=== PATIENT | male | born 1955 | race Caucasian/White ===

== ENCOUNTER 2020-03-25 07:35 | Emergency (ER) | payer OTHER, SELFPAY ==
[2020-03-25 07:55] VITALS: BP 136/85; PULSE 72; RESP 16; TEMP 37.3; O2SAT 98; BMI 29.3
--- NOTE | 2020-03-25 08:22 | XR_ITS ---
EXAMINATION: XR HAND, RIGHT CLINICAL INFORMATION: Second finger laceration. Evaluate for fracture. COMPARISON: None TECHNIQUE: PA, lateral, and oblique views of the right hand. FINDINGS: Bone alignment is normal. No fracture or dislocation is seen. The joint spaces are normal. The soft tissues are normal. No foreign body is seen. XR/XR hand RT min 3V IMPRESSION: No fracture or foreign body seen.
--- NOTE | 2020-03-25 08:24 | ED.WOUNDLAC ---
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 Patient quickly pulled out his finger causing a laceration to the right index finger. Tetanus status unknown. Onset (ago): hour(s) (Less then 1 hr) Extremity Location: right: hand (index finger) Place: work Patient tetanus UTD: No Context: accidental Associated symptoms: none Related Data Allergies Allergy/AdvReac Type Severity Reaction Status Date / Time No Known Allergies Allergy Verified 03/25/20 08:19 Review of Systems Review of Systems: Yes all other systems are reviewed and are negative Constitutional: Constitutional: Reports no additional constitutional complaints, Denies body ache(s), Denies chills, Denies fever(s), Denies headache(s) and Denies weakness Eyes: Eyes: Reports no additional eye complaints and Denies change in vision ENT: Reports system reviewed and no additional complaints, except as documented, Denies dizziness, Denies headache(s), Denies nasal congestion, Denies nasal discharge and Denies neck pain Cardiovascular: Cardiovascular: Reports no additional cardiovascular complaints, Denies chest pain, Denies leg edema and Denies dyspnea Respiratory: Respiratory: Reports no additional respiratory complaints, Denies cough and Denies dyspnea Gastrointestinal: Gastrointestinal: Reports no additional gastrointestinal complaints, Denies abdominal pain, Denies diarrhea, Denies nausea and Denies vomiting Genitourinary: Genitourinary: Denies urinary incontinence Musculoskeletal: Musculoskeletal: Reports no additional musculoskeletal complaints, Denies back pain, Denies arthralgias, Denies joint swelling, Denies neck pain, Denies numbness and Denies tingling Integumentary/Breasts: Skin/Breast: Reports system reviewed and no additional complaints, except as docu and Denies rash Neurologic: Reports system reviewed and no additional complaints, except as documented, Denies Abnormal speech present, Denies dizziness, Denies headache(s), Denies numbness, Denies tingling and Denies weakness PMFSH Past Medical History Attestation statement: The following information was validated with the patient. Source: obtained from family and nursing notes reviewed Medical History High cholesterol HTN (hypertension) Social History Social History Smoking Status: Light tobacco smoker Use of substances other than those prescribed or required for medical reasons: No Advance Directives: No Advance Directives Information Provided: Yes Physical Exam Vital Signs: Vital Signs: Last Vital Signs Temp 99.1 F 03/25/20 07:55 Pulse 72 03/25/20 07:55 Resp 16 03/25/20 07:55 BP 136/85 03/25/20 07:55 Pulse Ox 98 03/25/20 07:55 Body Mass Index 29.3 Const: General: cooperative, healthy appearing, comfortable and no acute distress Orientation/consciousness: patient oriented x3 Limitations: no limitations HENMT: Head: Yes normal to inspection Ears: hearing grossly normal bilaterally General nose exam: Normal external nose present Face and sinus: Yes normal facial exam Mouth: Normal oral and palatal mucosa present Throat: Yes posterior oropharynx normal Eyes: General: appearance normal, both eyes and all related structures Pupils: Equal, round and reactive pupils present Neck: Neck: Yes normal visual inspection Chest: Chest palpation & inspection: normal inspection of the chest Resp: Effort & Inspection: normal respiratory effort Auscultation: clear to auscultation bilaterally Cardio: Rate: regular rate Rhythm: regular rhythm Peripheral pulses: Peripheral pulses 2+ throughout GI: Inspection: Yes normal to inspection Palpation (GI): Soft to palpation and nontender Auscultation: normal bowel sounds Back/Spine/Pelvis: Thoracic/Lumbar Spine: thoracic and lumbar spine normal to inspection Skin: General skin exam: no rashes or lesions noted Neuro: General: patient oriented x3, no focal motor deficits and normal sensation to monofilament Cranial nerves: Yes Equal, round and reactive pupils present Cognition (Neuro): normal cognition Speech: No Abnormal speech present Gait exam (Neuro): Normal gait present Motor exam (neuro): 5/5 motor strength present throughout Extrem: Other: over the distal index right finger there is a laceration over the volar aspect ~2cm. Bleeding controlled. FROM. NV intact distally. General: Yes normal to inspection Course Course Course Narrative: X-ray negative for fracture. See wound repair note. Tetanus updated. Procedures Laceration Laceration 1: Site: upper extremity Side (If applicable): right Size (cm): 2 Description: flap Depth: simple, single layer Local Anesthetic: lidocaine 2% Pre-repair: wound explored Skin layer closed with: nylon Size (cm): 5-0 Number of sutures: 3 Technique: simple, interrupted MDM - Wound/Laceration Imaging Data hand xray: Attestation: I personally reviewed and interpreted this imaging study as follows: My impression: Unremarkable, no fracture Discharge Plan Discharge Clinical Impression: Laceration Patient Disposition: Home, Self-Care Instructions: Laceration (ED) Additional Instructions: keep covered for 24hrs. Then keep open to air. Wash daily with soap and water. Do not submerge in water Sutures out in 7 days Return for signs of infection (redness, drainage, fever >100.4) Referrals: Samir Mckeon MD [Primary Care Provider] - 2 days Stand Alone Forms: Work/School Release Interventions: ED Discharge Assessment Last Done: 03/25/20 08:56 Discharge Date/Time: 03/25/20 08:56
[2020-03-25] MEDS: Lidocaine HCl 2 % MPF 5 ML VIAL SUBCUT (08:32)
== END 2020-03-25 08:56 | disposition home or self-care (01) ==
PROVIDERS: Emergency Provider Internal Medicine; PCP Internal Medicine
DX: S61.210A Laceration without foreign body of right index finger without damage to nail, initial encounter (principal); S60.511A Abrasion of right hand, initial encounter; M79.644 Pain in right finger(s); W31.9XXA Contact with unspecified machinery, initial encounter; Y93.9 Activity, unspecified; Y92.9 Unspecified place or not applicable; Y99.0 Civilian activity done for income or pay; Z23 Encounter for immunization
CPT/HCPCS: 12041; 73130; 90471; 90715; 99284

== ENCOUNTER → 2020-03-29 12:48 | Outpatient (BNVA) | payer OTHER, SELFPAY | PROVIDERS: PCP Internal Medicine; Visit Provider Internal Medicine | DX: S61.210A Laceration without foreign body of right index finger without damage to nail, initial encounter (principal); W31.9XXA Contact with unspecified machinery, initial encounter | CPT/HCPCS: 99203 ==

== ENCOUNTER → 2020-04-04 13:13 | Outpatient (BNVA) | payer OTHER, SELFPAY | PROVIDERS: PCP Internal Medicine; Visit Provider Physician Assistant Medical | DX: S61.210A Laceration without foreign body of right index finger without damage to nail, initial encounter (principal); X58.XXXA Exposure to other specified factors, initial encounter; Y93.9 Activity, unspecified; Y92.9 Unspecified place or not applicable; Y99.8 Other external cause status | CPT/HCPCS: 99212; 99213 ==